=== PATIENT | male | born 1970 | race Caucasian/White ===

== ENCOUNTER 2021-12-23 00:53 | Emergency (ER) | payer SELFPAY ==
[2021-12-23 01:03] VITALS: BP 181/113
[2021-12-23 01:15] VITALS: BP 164/96
[2021-12-23 01:35] LABS: HEMOGLOBIN 12.3 g/dl (14.0-18.0); IMMATURE GRANULOCYTES 0.1 % (0.0-5.0); MEAN CELL VOLUME 96.4 fL CALC (80.0-100.0); MEAN CORPUSCULAR HGB CONC 33.2 g/dL CAL (32.0-36.0); NEUT# 9.85 thou/uL (1.82-7.42); RED BLOOD COUNT 3.84 mill/uL (4.70-6.10)
[2021-12-23 01:36] LABS: URINE BILIRUBIN - DIPSTICK NEGATIVE (NEGATIVE); URINE BLOOD DIPSTICK NEGATIVE (NEGATIVE); URINE COLOR YELLOW; URINE GLUCOSE - DIPSTICK NEGATIVE (NEGATIVE); URINE KETONE NEGATIVE (NEGATIVE); URINE LEUK ESTERASE NEGATIVE (NEGATIVE); URINE PH 6.5 (4.5-8.0); URINE PROTEIN - DIPSTICK NEGATIVE (NEG-TRACE); URINE SPECIFIC GRAVITY <=1.005
[2021-12-23 01:38] LABS: URINE NITRITE - DIPSTICK NEGATIVE (Negative)
[2021-12-23 01:50] LABS: D-DIMER 1.2 mg/L (0.19-0.60)
[2021-12-23 01:51] LABS: ALBUMIN 4.3 g/dL (3.2-5.0); ALKALINE PHOSPHATASE 437 u/l (38-126); ANION GAP 19 (6-22 (CALC)); BILIRUBIN, TOTAL 2.1 mg/dL (0.0-1.4); BUN 6 mg/dL (9-20); BUN/CREATININE RATIO 8 (12-20 (CALC)); CARBON DIOXIDE 24 mmol/l (22-30); CHLORIDE 105 mmol/l (95-108); CREATININE 0.8 mg/dL (0.7-1.3); GFR FOR AFR.AMER. > 60 ML/MIN (>=60 (CALC)); GFR OTHER RACES > 60 ML/MIN (>=60 (CALC)); LIPASE 220 u/l (23-300); SGOT/AST 113 u/l (17-59); SODIUM 145 mmol/l (137-146); TOTAL PROTEIN 8.8 g/dL (6.3-8.2)
[2021-12-23 01:54] LABS: ACT PARTIAL THROMBO TIME 29.6 SECONDS (20.0-32.5); INTERNATIONAL NORMALIZED RATIO 1.3 RATIO (0.7-1.3); PROTHROMBIN TIME 12.7 SECONDS (9.0-12.5)
[2021-12-23 01:59] LABS: ETHYL ALCOHOL 314 mg/dl (0-30)
[2021-12-23 02:00] VITALS: BP 154/90
[2021-12-23 02:04] LABS: MYOGLOBIN 34 ng/mL (0 - 121)
[2021-12-23 02:46] VITALS: BP 178/102
[2021-12-23] MEDS ORDERED: LISINOP/HCTZ1 TA2 PO (02:50)
[2021-12-23 02:53] VITALS: BP 178/102
== END 2021-12-23 03:04 | disposition home or self-care (01) | DRG 313 ==
LOC: ED 00:53
PROVIDERS: Family Medicine
DX: R07.89 Other chest pain (principal); I10 Essential (primary) hypertension; F10.129 Alcohol abuse with intoxication, unspecified; F17.210 Nicotine dependence, cigarettes, uncomplicated; Z20.822 Contact with and (suspected) exposure to COVID-19